=== PATIENT | female | born 1960 | race American Indian/Alaskan Native ===

== ENCOUNTER 2017-01-16 08:31 | Outpatient (CLI) | payer BC ==
--- NOTE | 2017-01-16 09:58 | Ultrasound Report ---
BILATERAL DIGITAL DIAGNOSTIC MAMMOGRAM WITH CAD and BILATERAL BREAST ULTRASOUND: 01/16/17 08:31:00 CLINICAL: Breast cancer survivor status post right partial mastectomy. Bilateral breast pain and right arm pain. COMPARISON:10/24/16 screening mammogram. FINDINGS: The breasts are heterogeneously dense, which may obscure small masses. The right breast is smaller than the left with minimal lower inner postsurgical scar. Stable moderate skin thickening of the right breast. No mass, suspicious architectural distortion or suspicious calcifications. The left breast is negative. Ultrasound of both breasts (including all four quadrants and the retroareolar area) was performed and demonstrated normal fibroglandular and fatty structures. No mass, cyst or shadowing in either breast. IMPRESSION: No mammographic evidence of malignancy and negative bilateral breast ultrasound. BI-RADS CATEGORY: 2 -- Benign RECOMMENDATION: Routine mammographic screening in one year. I suspect that she is having symptoms of lymphedema in the right arm and right breast and she may benefit from lymphedema therapy. COMMENT: Patient follow-up letters are generated via our [employer] application.
== END 2017-01-16 08:32 | disposition home or self-care (01) ==
LOC: SPVWC 08:31
DX: N64.4 Mastodynia (principal); Z90.11 Acquired absence of right breast and nipple
CPT/HCPCS: 76641; G0204; 77066

== ENCOUNTER 2019-02-23 08:26 | Outpatient (CLI) | payer BC ==
--- NOTE | 2019-02-23 11:43 | Mammography Report ---
BILATERAL DIGITAL SCREENING MAMMOGRAM WITH CAD: 02/23/19 08:26:00 CLINICAL: Routine screening.Breast cancer survivor status post right partial mastectomy . COMPARISON:01/16/17 FINDINGS: The breasts are heterogeneously dense, which are small masses. The right breast is smaller than the left with stable inner postsurgical scar. Moderate skin thickening of the right breast is not significantly changed compared to previous exams. No mass, suspicious architectural distortion or suspicious calcifications. IMPRESSION: No mammographic evidence of malignancy. BI-RADS CATEGORY: 2 -- Benign RECOMMENDATION: Routine mammographic screening in one year. COMMENT: Patient follow-up letters are generated via our [employer] application.
== END 2019-02-23 08:27 | disposition home or self-care (01) ==
LOC: MAMMO 08:26
DX: Z12.31 Encounter for screening mammogram for malignant neoplasm of breast (principal)
CPT/HCPCS: 77067

== ENCOUNTER 2020-06-02 07:38 | Outpatient (CLI) | payer BC ==
--- NOTE | 2020-06-02 14:09 | Mammography Report ---
DIGITAL SCREENING MAMMOGRAM WITH CAD, 06/02/2020 INDICATION: Routine screening mammography. TECHNIQUE: Digital bilateral 2D mammography was obtained in the craniocaudal and mediolateral obliq ue projections. This examination was interpreted with the benefit of Computer-Aided Detection analysi s. COMPARISON: 06/25/2019. FINDINGS: Breast Density: There are scattered areas of fibroglandular density. There is no evidence of dominant mass, suspicious calcifications or architectural distortion in eithe r breast. IMPRESSION: Follow up recommendation: Routine yearly BI-RADS Category 1: Negative. A "normal" or negative report should not discourage follow up or biopsy of a clinically significant f inding. A written summary of these findings will be mailed to the patient. The patient will be entered into a mammography reporting system which will generate a reminder letter for the patient's next appointmen t at the appropriate interval. The [employer] recommends yearly mammograms starting at age 40 and continuing as l bruno as a woman is in good health. Breast MRI is recommended for women with an approximate 20-25% or greater lifetime risk of breast cancer, including women with a strong family history of breast or ova keily cancer or who have been treated for Hodgkin's disease. Signer Name: Rahat Shabazz MD Signed: 06/02/2020 2:04 PM Workstation Name: [id number]
== END 2020-06-02 07:39 | disposition home or self-care (01) ==
LOC: MAMMO 07:38
PROVIDERS: ATTEND Internal Medicine
DX: Z12.31 Encounter for screening mammogram for malignant neoplasm of breast (principal); N64.89 Other specified disorders of breast
CPT/HCPCS: 77067

== ENCOUNTER 2021-06-06 07:30 | Outpatient (CLI) | payer BC ==
--- NOTE | 2021-06-06 12:17 | Mammography Report ---
DIGITAL SCREENING MAMMOGRAM WITH CAD, 06/06/2021 CLINICAL INFORMATION / INDICATION: Routine screening mammography. SCREENING MAMMOGRAM TECHNIQUE: Digital bilateral 2D mammography was obtained in the craniocaudal and mediolateral obliqu e projections. This examination was interpreted with the benefit of Computer-Aided Detection analysis . COMPARISON: 06/02/2020 FINDINGS: Breast Density: There are scattered areas of fibroglandular density. No dominant mass, suspicious calcifications, or architectural distortion in either breast. Largely unchanged nodular densities in the breasts, commonly fibroglandular or fibrocystic change. IMPRESSION: No mammographic evidence of malignancy. Follow up recommendation: Routine yearly BI-RADS Category 2: Benign. A "normal" or negative report should not discourage follow up or biopsy of a clinically significant f inding. A written summary of these findings will be mailed to the patient. The patient will be entered into a mammography reporting system which will generate a reminder letter for the patient's next appointmen t at the appropriate interval. The [employer] recommends yearly mammograms starting at age 40 and continuing as l bruno as a woman is in good health. Breast MRI is recommended for women with an approximate 20-25% or greater lifetime risk of breast cancer, including women with a strong family history of breast or ova keily cancer or who have been treated for Hodgkin's disease. Signer Name: Poncho Christy MD Signed: 06/06/2021 12:13 PM Workstation Name: [id number]
== END 2021-06-06 07:31 | disposition home or self-care (01) ==
LOC: MAMMO 07:30
PROVIDERS: ATTEND Internal Medicine
DX: Z12.31 Encounter for screening mammogram for malignant neoplasm of breast (principal); N64.89 Other specified disorders of breast
CPT/HCPCS: 77067